=== PATIENT | male | born 1965 | race Caucasian/White ===

== ENCOUNTER 2023-01-20 15:13 | Emergency (ER) | payer OTHER, SELFPAY ==
--- NOTE | ~2023-01-20 | XR_ITS ---
EXAMINATION: XR abdomen/kub 1V INDICATION: Left flank pain and hematuria TECHNIQUE: Supine views of the abdomen were obtained on 2 radiographs. COMPARISON: None FINDINGS: There is a questionable 4 mm stone versus bowel content projecting between the left L2 and L3 transverse processes. There are no dilated loops of bowel. The visualized lung bases are clear. Th e moderate size hiatal hernia is noted. IMPRESSION: 1. 4 mm stone versus bowel contents projecting at the expected location of the proximal left ureter. Consider further evaluation with CT. Reviewed, dictated and finalized at location F.
[2023-01-20 15:25] VITALS: BP 187/121; PULSE 65; RESP 16; TEMP 36.6; O2SAT 100
[2023-01-20 15:59] VITALS: BP 178/120
--- NOTE | 2023-01-20 16:00 | ED.GENADULT ---
HPI - General Adult General Chief complaint: Urogenital-Male Stated complaint: Kidney infection symptoms Time Seen by Provider: 01/20/23 15:46 Source: patient and RN notes reviewed Mode of arrival: ambulatory Limitations: no limitations History of Present Illness HPI narrative: Patient presents today with a 4 day history of headache, fever up to 100, nausea, chills and sweats, low back pain, mild left flank pain, increased urinary frequency. Denies dysuria, hematuria, abdominal pain. He has been taking Tylenol with little relief. Patient states he has not seen a physician in approximately 20 years. Related Data Home Medications Medication Instructions Recorded Confirmed No Home Medications 01/20/23 01/20/23 Allergies Allergy/AdvReac Type Severity Reaction Status Date / Time No Known Allergies Allergy Verified 01/20/23 15:22 Review of Systems Review of Systems: CONSTITUTIONAL: + chills, sweats, fever EYES: Denies visual changes, redness, or discharge. ENT: Denies rhinorrhea, congestion, sore throat, or otalgia. CARDIOVASCULAR: Denies chest pain, palpitations, or edema. RESPIRATORY: Denies cough or dyspnea. GASTROINTESTINAL: Denies abdominal pain, vomiting, or diarrhea.+ nausea GENITOURINARY: Denies dysuria or hematuria.+ frequency, left flank pain SKIN: Denies rash, itching, or wounds. MUSCULOSKELETAL: Denies joint pain, or myalgia.+ low back pain NEUROLOGIC: Denies numbness, tingling, or weakness.+ headache PSYCH: Denies depression or anxiety. PMFSH Comments At time of signature, I have reviewed and agree with nursing past medical, surgical, social and family history unless otherwise noted. Please see nursing chart for further information. There is no relevant family history pertinent to the presenting complaint Exam Narrative: GENERAL: Well-appearing, well-nourished, and in no acute distress. HEAD: Normocephalic, atraumatic. EYES: EOMI. No redness or drainage. Conjunctivae normal. ENT: Mucous membranes pink and moist. Nares clear. No rhinorrhea. TMs normal bilaterally. Throat normal. Uvula midline. NECK: Normal AROM. Supple. No lymphadenopathy. CHEST: No respiratory distress. Clear to auscultation. HEART: Regular rate and rhythm. No murmur appreciated. Normal peripheral pulses. ABDOMEN: Soft, nontender, nondistended, normal active bowel sounds.-CVAT MUSCULOSKELETAL: No bony tenderness of the spine or paraspinal muscles. EXTREMITIES: Normal range of motion. No edema. SKIN: Warm, dry, no rash. Capillary refill normal. Normal skin turgor. NEURO: No focal deficits. Alert and oriented x3. Gait steady. PSYCH: Normal affect. No signs of depression or anxiety. Course Course Level of Care: Express Care Visit Vital Signs Vital signs: Vital Signs Temperature 97.8 F 01/20/23 15:25 Pulse Rate 65 01/20/23 15:25 Respiratory Rate 16 01/20/23 15:25 Blood Pressure 187/121 H 01/20/23 15:25 Pulse Oximetry 100 01/20/23 15:25 Temperature 97.8 F 01/20/23 15:25 Pulse Rate 65 01/20/23 15:25 Respiratory Rate 16 01/20/23 15:25 Blood Pressure 178/120 H 01/20/23 15:59 Pulse Oximetry 100 01/20/23 15:25 Reviewed Transfer Transfered to: Other ([facility]) Medical Decision Making MDM Narrative Medical decision making narrative: Trace blood in the urinalysis. Possible 4 mm stone in the proximal left ureter per x-ray. Based on these findings and patient's symptoms, I feel it indicated that he be transferred to the ER for further evaluation. Patient would like to be transferred to [facility] in [place]. Differential Diagnosis Differential Diagnosis: COVID-19, influenza so, UTI, kidney stone, hypertension, hypertensive urgency, hypertensive emergency Vital Signs Vital Signs: Vital Signs Temperature 97.8 F 01/20/23 15:25 Pulse Rate 65 01/20/23 15:25 Respiratory Rate 16 01/20/23 15:25 Blood Pressure 187/121 H
== END 2023-01-20 16:39 | disposition short-term general hospital (02) ==
PROVIDERS: Emergency Provider Nurse Practitioner
DX: N20.0 Calculus of kidney (principal); I10 Essential (primary) hypertension
CPT/HCPCS: 74018; 81003; 87426; 87804; 99203; C9803; G0463

== ENCOUNTER 2023-03-19 11:25 | Emergency (ER) | payer OTHER, SELFPAY ==
[2023-03-19 11:47] VITALS: BP 115/83; PULSE 98; RESP 16; TEMP 36.2; O2SAT 98
--- NOTE | 2023-03-19 12:04 | ED.GENADULT ---
HPI - General Adult General Chief complaint: Ear Stated complaint: Ear problem Time Seen by Provider: 03/19/23 12:07 Source: patient, RN notes reviewed and old records reviewed Mode of arrival: ambulatory Limitations: no limitations History of Present Illness HPI narrative: 57-year-old male presents to the [facility] with clogged ear left side. Has been cleaning with Q-tips. Denies any other symptoms. Symptoms x4 days Related Data Home Medications Medication Instructions Recorded Confirmed amlodipine 10 mg tablet 10 mg PO DAILY 03/19/23 03/19/23 losartan 50 mg tablet 50 mg PO DAILY 03/19/23 03/19/23 Allergies Allergy/AdvReac Type Severity Reaction Status Date / Time No Known Allergies Allergy Verified 03/19/23 11:43 Review of Systems Review of Systems: All systems reviewed & are unremarkable except as noted in HPI and below Constitutional: Constitutional: Reports no additional constitutional complaints Eyes: Eyes: Reports no additional eye complaints ENT: Reports as per HPI Cardiovascular: Cardiovascular: Reports no additional cardiovascular complaints, Denies chest pain and Denies dyspnea Respiratory: Respiratory: Reports no additional respiratory complaints, Denies chest congestion, Denies cough and Denies dyspnea Gastrointestinal: Gastrointestinal: Reports no additional gastrointestinal complaints, Denies abdominal pain, Denies nausea and Denies vomiting Musculoskeletal: Musculoskeletal: Reports no additional musculoskeletal complaints Integumentary/Breasts: Skin/Breast: Reports system reviewed and no additional complaints, except as docu Neurologic: Reports system reviewed and no additional complaints, except as documented Psychiatric: Psychiatric: Reports no additional psychiatric complaints Allergic/Immunologic: Allergic/Immunologic: Reports no additional allergic/immunologic complaints PMFSH Comments At the time of my signature, I reviewed and agree with the nursing past medical, surgical, social, and family history. There is no relevant family history pertinent to the patient complaint. Exam Const: General: cooperative, healthy appearing, comfortable, no acute distress, well developed, alert and well nourished Nutritional Appearance: well nourished Orientation/consciousness: patient oriented x3 Limitations: no limitations HENMT: Head: normal to inspection Ears: hearing grossly normal bilaterally, external ears normal and TM abnormal wth effusion serous bilateral; not bulging, not erythematous and with no loss of landmarks Face/Nose/Sinus: Normal external nose present, Normal nares present, Normal nasal mucous membranes and turbinates present, normal facial exam and face symmetric Face and sinus: normal facial exam and face symmetric Mouth: Yes Normal oral and palatal mucosa present, Yes lip normal and Yes moist mucous membranes Throat: posterior oropharynx normal and uvula midline Eyes: General: appearance normal, both eyes and all related structures Alignment and Position: alignment normal Periorbital: periorbital findings normal Pupils: Equal, round and reactive pupils present EOM: EOMs intact bilaterally Neck: Neck: normal visual inspection, full ROM, no lymphadenopathy and no meningeal signs Chest: Chest palpation & inspection: normal inspection of the chest Resp: Effort & Inspection: normal respiratory effort and able to speak in complete sentences Auscultation: clear to auscultation bilaterally, no crackles, no rales, no rhonchi and no wheezes Cardio: Rate: regular rate Rhythm: regular rhythm Back/Spine/Pelvis: Cervical Spine: cervical ROM normal Skin: General skin exam: normal color and no rashes or lesions noted Lesions: no lesions Rashes: no rashes Wounds: no wounds Neuro: General: patient oriented x3, gait normal, tone normal, moves all extremities and no meningeal signs Cranial nerves: Yes Equal, round and reactive pupils present Cognition (Neuro): normal cognition S
== END 2023-03-19 12:15 | disposition home or self-care (01) ==
PROVIDERS: Emergency Provider Nurse Practitioner
DX: H65.03 Acute serous otitis media, bilateral (principal); Z79.899 Other long term (current) drug therapy
CPT/HCPCS: 99211; G0463